=== PATIENT | female | born 1990 | race Caucasian/White ===

== ENCOUNTER 2019-02-27 15:53 | Inpatient (IN) | payer OTHER ==
[~2019-02-27] VITALS: Ht 172.7 cm; Wt 52.2 kg
--- NOTE | 2019-02-27 16:00 | NUR ---
PT IS A/OX4, PRESENTS TO THE ER C/O N/V X 3 DAYS, TNTC. PT IS LETHARGIC AND REPORTS THAT SHE HAS NOT BEEN ABLE TO EAT OR HOLD ANYTHING DOWN SINCE THE VOMITING BEGAN 3 DAYS AGO. VS WNL. PT STATES SHE NORMALLY TAKES CITALOPRAM FOR HER ANXIETY BUT IT HAS NOT BEEN HELPING DUE TO HER CONSTANT VOMITING. PT DENIES PAIN, C/P, SOB, DIZZINESS, HEADACHE.
[2019-02-27] MEDS ORDERED: ONDANSETRON 4 MG/2 ML VIAL ONE (16:27)
[2019-02-27] MEDS ORDERED: ONDANSETRON 4 MG/2 ML VIAL IV ONE ×2 (16:30→17:00)
[2019-02-27] MEDS ORDERED: IV NORMAL SALINE 1000 ML BAG IV ONE ×2 (16:30→17:00)
[2019-02-27 16:33] LABS: BASOPHILS # (AUTO) 0.1 K/uL (0.0-8.0); BASOPHILS % (AUTO) 0.5 % (0.0-2.0); EOSINOPHILS % (AUTO) 0.2 % (0.0-7.0); HEMATOCRIT 50.5 % (31.2-41.9); LYMPHOCYTES # (AUTO) 1.4 K/uL (20.0-40.0); LYMPHOCYTES % (AUTO) 9.6 % (20.5-51.5); MEAN CORPUSCULAR HEMOGLOBIN 30.6 uug (24.7-32.8); MEAN CORPUSCULAR HGB CONC 34 g/dL (32.3-35.6); MONOCYTES # (AUTO) 0.8 K/uL (2.0-10.0); MONOCYTES % (AUTO) 5.9 % (0.0-11.0); NEUTROPHILS # (AUTO) 12.1 K/uL (1.8-8.9); NEUTROPHILS % (AUTO) 83.8 % (38.5-71.5); PLATELET COUNT (AUTO) 424 K/uL (179-408); RED BLOOD CELL COUNT(AUTO) 5.55 MIL/uL (3.63-4.92); WHITE BLOOD COUNT (AUTO) 14.4 K/uL (3.8-11.8)
[2019-02-27 16:45] LABS: POTASSIUM 3.9 mmol/L (3.5-5.1)
[2019-02-27 16:50] LABS: BILIRUBIN,DIRECT 0.2 mg/dL (0.0-0.2); BILIRUBIN,TOTAL 1.1 mg/dL (0.2-1.0)
[2019-02-27] MEDS ORDERED: HALOPERIDOL LACTATE 5 MG/1 ML VIAL IV ONE (17:00)
[2019-02-27] MEDS ORDERED: HALOPERIDOL LACTATE 5 MG/1 ML VIAL ONE (17:03)
[2019-02-27 17:04] LABS: BAND % (MANUAL) 2 % (0-10); LYMPHOCYTES % (MANUAL) 12 % (20-40); MONOCYTES % (MANUAL) 4 % (2-10); NEUTROPHILS % (MANUAL) 82 % (42-75)
[2019-02-27] MEDS ORDERED: CITA20TA16 PO (17:39)
--- NOTE | 2019-02-27 18:22 | NUR ---
ADMITTING REPORT GIVEN TO RICK JAMESON.
--- NOTE | 2019-02-27 18:30 | NUR ---
Pt. admitted to [facility]LE 304, under care of Dr. SPENCE. Belongs List completed
[2019-02-27 18:54] VITALS: BP 111/68
--- NOTE | 2019-02-27 19:03 | NUR ---
Patient 28 year old female from emergency room presenting with Nausea and Vomiting since Tuesday patient diagnosed with Acute Renal Failure. patient given 8mg Zofran and 2L of NS in emergency room. Patient stable with stable vital signs and nos signs of distress. Report given to oncoming nurse.
[2019-02-27 20:00] VITALS: BP 110/66
[2019-02-27] MEDS ORDERED: HALOPERIDOL LACTATE 5 MG/1 ML VIAL IM PRN (20:30)
[2019-02-27] MEDS ORDERED: ONDANSETRON 4 MG/2 ML VIAL IV PRN (20:30)
[2019-02-27] MEDS ORDERED: ACETAMINOPHEN 325 MG TABLET PO PRN (20:30)
--- NOTE | 2019-02-27 21:00 | NUR ---
Admitting Notes Patient is a 28 y/o female with a history of anxiety and depression plus daily cannaboid use but no other medical history. Patient is alert/oriented x3 with no complaints of pain or discomfort at this time, but is feeling anxious and nauseas. IV site in left AC is patent and intact, IVF of NS @ 80mL/hr started, and prescribed 2mL Pepcid provided as ordered, and tolerated well. Patient allowed to shower because she states that a hot shower helps with her anxiety. Post shower, patient was calm and relaxed, and is now sleeping comfortably in bed. All safety and fall precaution measures are in place. Call light and personal items are within reach at all times. Will continue to monitor throughout shift.
[2019-02-27] MEDS: IV NS 1000 ML 1,000 ML IV PRN (21:09)
[2019-02-27] MEDS: FAMOTIDINE. 20 MG/2 ML VIAL IV SCH (21:09)
[2019-02-28] VITALS: BP 115/72
[2019-02-28 04:00] VITALS: BP 120/85
--- NOTE | 2019-02-28 04:40 | NUR ---
Urine collected and delivered to lab
[2019-02-28] MEDS: LORAZEPAM 2 MG/1 ML VIAL IV PRN ×2 (04:43→12:56)
[2019-02-28 05:16] LABS: *CLARITY,URINE SLIGHTLY CLOUDY (CLEAR); *COLOR,URINE YELLOW (YELLOW); *KETONES,URINE 1+ (NEGATIVE); *UROBILINOGEN,URINE 0.2 E.U./dl (NORMAL); LEUKOCYTE ESTERASE ,URINE NEGATIVE (NEGATIVE); NITRITE, URINE NEGATIVE (NEGATIVE); UGLUCOSE NEGATIVE (NEGATIVE)
[2019-02-28 05:42] LABS: *BILIRUBIN,URIN 1+ (NEGATIVE); *BLOOD, URINE TRACE (NEGATIVE)
[2019-02-28 05:48] LABS: *URINE HCG, QUAL NEGATIVE (NEGATIVE)
[2019-02-28 05:51] LABS: RBC,URINE 0-3 /HPF (0-3); WBC,URINE 0-3 /HPF (0-3)
[2019-02-28 05:52] LABS: BACTERIA,URINE NONE SEEN /HPF (NONE SEEN); MUCUS,URINE FEW /LPF (0-FEW); SQUAMOUS EPITHELIAL CELL,UR MANY /HPF (NONE SEEN)
--- NOTE | 2019-02-28 06:00 | NUR ---
Patient slept comfortably after admission to floor. One incident of anxiety was unrelieved by nonpharmacological measures and was relieved with prescribed lorazepam. Patient had no complaints of pain this shift. Urine was collected and delivered to lab this shift. IVF infusing at 80mL/hr are being tolerated well. Call light and personal items are within reach at all times. Safety and fall precaution measures remain in place.
--- NOTE | 2019-02-28 08:00 | NUR ---
RESTING WITH EYES CLOSED CONTINUE WITH TELE OBSERVATION SR ON MONITOR, NO SIGNS OF VOMITING CONTINUE WITH IVF . VERY POOR FOOD INTAKE
[2019-02-28] MEDS: FAMOTIDINE. 20 MG/2 ML VIAL IV SCH ×2 (08:39→21:01)
[2019-02-28] MEDS: CITALOPRAM 20 MG TABLET PO SCH (08:39)
[2019-02-28] MEDS: MORPHINE SULFATE 2 MG/1 ML DISP.SYRIN IV PRN ×2 (08:45→16:04)
[2019-02-28] MEDS: IV NS 1000 ML 1,000 ML IV PRN ×2 (08:57→21:37)
[2019-02-28 09:10] LABS: BASOPHILS % (AUTO) 0.5 % (0.0-2.0); EOSINOPHILS % (AUTO) 0.2 % (0.0-7.0); HEMATOCRIT 39.4 % (31.2-41.9); HEMOGLOBIN 13.2 g/dL (10.9-14.3); LYMPHOCYTES # (AUTO) 1.9 K/uL (20.0-40.0); LYMPHOCYTES % (AUTO) 20.1 % (20.5-51.5); MEAN CORPUSCULAR HEMOGLOBIN 30.8 uug (24.7-32.8); MEAN CORPUSCULAR HGB CONC 33 g/dL (32.3-35.6); MEAN CORPUSCULAR VOLUME 92.1 fL (75.5-95.3); MONOCYTES # (AUTO) 0.8 K/uL (2.0-10.0); MONOCYTES % (AUTO) 8.4 % (0.0-11.0); NEUTROPHILS # (AUTO) 6.9 K/uL (1.8-8.9); NEUTROPHILS % (AUTO) 70.8 % (38.5-71.5); PLATELET COUNT (AUTO) 259 K/uL (179-408); RED BLOOD CELL COUNT(AUTO) 4.28 MIL/uL (3.63-4.92); WHITE BLOOD COUNT (AUTO) 9.7 K/uL (3.8-11.8)
[2019-02-28 09:33] LABS: THYROID STIMULATING HORMONE 1.339 mIU/mL (0.358-3.740)
[2019-02-28 09:52] LABS: BILIRUBIN,TOTAL 0.9 mg/dL (0.2-1.0); CREATININE 0.7 mg/dL (0.6-1.3); PHOSPHOROUS 2.1 mg/dL (2.5-4.9); POTASSIUM 3.2 mmol/L (3.5-5.1)
[2019-02-28 11:42] VITALS: BP 118/59
--- NOTE | 2019-02-28 12:00 | NUR ---
NO ACUTE PAIN OR SIGNS OF VOMITING. CLOSELY MONITORED
[2019-02-28] MEDS ORDERED: NEUTRA PHOS PACKET PO ONE (15:45)
--- NOTE | 2019-02-28 15:48 | NUR ---
PATIENT REMAINS TO HAVE ON AND OFF ANXIETY MEDICATED WITH ATIVAN WITH RELIEF.
[2019-02-28 16:00] VITALS: BP 117/54
[2019-02-28] MEDS ORDERED: BIRTH CONTROL (16:29)
--- NOTE | 2019-02-28 19:19 | NUR ---
Handoff with RICK Quach. Enzo Doyle RN
--- NOTE | 2019-02-28 19:30 | NUR ---
RECEIVED PT AWAKE, ALERT AND ORIENTEDX4. PT SHOWS NO SIGNS OF ACUTE DISTRESS. PT IV INTACT. SAFETY AND COMFORT PROVIDED. WILL CONTINUE TO MONITOR.
[2019-02-28 20:35] VITALS: BP 106/58
[2019-03-01 04:41] VITALS: BP 98/53
--- NOTE | 2019-03-01 06:23 | NUR ---
PT SLEPT THROUGHOUT THE SHIFT. PT SHOWS NO SIGNS OF ACUTE DISTRESS. PRESCRIBED MEDICATION GIVEN AND PT TOLERATED IT WELL. PT TOLERATED IT WELL. SAFETY AND COMFORT PROVIDED. ALL NEEDS ARE MET. WILL ENDORSE TO INCOMING NURSE FOR CONTINUITY OF CARE.
[2019-03-01 06:29] LABS: BASOPHILS # (AUTO) 0.1 K/uL (0.0-8.0); BASOPHILS % (AUTO) 0.9 % (0.0-2.0); EOSINOPHILS # (AUTO) 0.1 K/uL (0.0-0.7); HEMATOCRIT 33.8 % (31.2-41.9); HEMOGLOBIN 11.3 g/dL (10.9-14.3); LYMPHOCYTES # (AUTO) 1.9 K/uL (20.0-40.0); LYMPHOCYTES % (AUTO) 35.1 % (20.5-51.5); MEAN CORPUSCULAR HEMOGLOBIN 30.8 uug (24.7-32.8); MEAN CORPUSCULAR HGB CONC 34 g/dL (32.3-35.6); MONOCYTES # (AUTO) 0.6 K/uL (2.0-10.0); MONOCYTES % (AUTO) 11.5 % (0.0-11.0); NEUTROPHILS # (AUTO) 2.8 K/uL (1.8-8.9); NEUTROPHILS % (AUTO) 51.5 % (38.5-71.5); PLATELET COUNT (AUTO) 211 K/uL (179-408); RED BLOOD CELL COUNT(AUTO) 3.67 MIL/uL (3.63-4.92); WHITE BLOOD COUNT (AUTO) 5.4 K/uL (3.8-11.8)
[2019-03-01 06:42] LABS: ALANINE AMINOTRANSFERASE 11 U/L (14-59); ALKALINE PHOSPHATASE 47 U/L (50-136); ASPARTATE AMINOTRANSFERASE 10 U/L (15-37); CARBON DIOXIDE 27 mmol/L (21-32); CHLORIDE 104 mmol/L (98-107); CREATININE 0.5 mg/dL (0.6-1.3); GLUCOSE 75 mg/dL (74-106); MAGNESIUM 1.8 mg/dL (1.8-2.4); PHOSPHOROUS 2.6 mg/dL (2.5-4.9); POTASSIUM 3.3 mmol/L (3.5-5.1); TOTAL PROTEIN, SERUM 5.8 g/dL (6.4-8.2); UREA NITROGEN, BLOOD 10 mg/dL (7-18)
--- NOTE | 2019-03-01 07:30 | NUR ---
Received pt. in bed, A/Ox4. No acute distress noted. On 2L via NC and tolerating well. LAC PIV remain patent and intact. Tolerating IV fluids with no s/sx of fluid overload. All needs attended and met at this time. Safety measures in place. Will continue to monitor.
[2019-03-01] MEDS: CITALOPRAM 20 MG TABLET PO SCH (08:46)
[2019-03-01] MEDS: FAMOTIDINE. 20 MG/2 ML VIAL IV SCH (08:46)
[2019-03-01] MEDS ORDERED: POTASSIUM CHLORIDE 20 MEQ TAB.PRT.SR PO ONE (09:30)
[2019-03-01] MEDS: IV NS 1000 ML 1,000 ML IV PRN (10:18)
[2019-03-01 11:33] VITALS: BP 113/70
--- NOTE | 2019-03-01 14:30 | NUR ---
Discharge Note: Pt. remained stable at this time. deemed pt. safe for discharge today 03/01/2019. Routine round with pt; pt. remain cooperative, A/OX4 with capacity to make decision. Lungs sounds clear to auscultation bilaterally, no respiratory distress. Heart with regular rate and rhythm, no murmur, rub or gallop. Abdomen soft,non-tender, bowel sounds present in all 4 quadrants. Conjunctivae clear, PERRLA. Pt. served with lunch as ordered and tolerated well. D/C LAC PIV, pt. tolerated procedure well. ID band removed. All belongings are prepared. Inventory done all accountable for. Skin intact with no skin issues. Instructed pt. to follow up with PCP and Psych (Per Dr. Porter) for eating disorder. Pt. teaching provided which include but not limited to meds administration, risk of fall, and skin mgt. Gave pt. information regarding returning to community. Discharge paper signed by pt. witnessed by this marketing copywriter. Provided pt. discharge packet. No further questions from the pt. about the discharge instructions, Pt. verbalized clear understanding. Pt. ambulatory with steady gait. Pt. left the facility at 1430 and d/c to home with family member.
== END 2019-03-01 14:30 | disposition home or self-care (01) | DRG 391 ==
LOC: ER 15:53 → TELE3 18:28 → MEDSURG3 02-28 11:44
PROVIDERS: ADMIT Internal Medicine; ATTEND Internal Medicine
DX: K29.00 Acute gastritis without bleeding (principal); N17.0 Acute kidney failure with tubular necrosis; E87.1 Hypo-osmolality and hyponatremia; Z68.1 Body mass index [BMI] 19.9 or less, adult; E86.0 Dehydration; R11.2 Nausea with vomiting, unspecified; T40.7X5A Adverse effect of cannabis (derivatives), initial encounter; Y92.019 Unspecified place in single-family (private) house as the place of occurrence of the external cause; F12.988 Cannabis use, unspecified with other cannabis-induced disorder; F41.9 Anxiety disorder, unspecified; F50.9 Eating disorder, unspecified; R63.6 Underweight; F41.0 Panic disorder [episodic paroxysmal anxiety]
CPT/HCPCS: 36415; 70030-TC; 82747; 83550; 83690; 83735; 84100; 84443; 84703; 85014; 85025; 87086; 93005; A4663; G0378; J1630; J2060; J2270; J2405; J3490; J7030

== ENCOUNTER 2019-07-26 13:55 | Emergency (ER) | payer OTHER ==
[~2019-07-26] VITALS: Ht 170.2 cm; Wt 52.2 kg
[2019-07-26] MEDS ORDERED: ONDANSETRON 4 MG/2 ML VIAL ONE ×3 (14:08→14:56)
[2019-07-26] MEDS ORDERED: LORAZEPAM 2 MG/1 ML VIAL ONE (14:09)
[2019-07-26] MEDS ORDERED: IV NORMAL SALINE 1000 ML BAG IV ONE (14:15)
[2019-07-26] MEDS ORDERED: LORAZEPAM 2 MG/1 ML VIAL IV ONE (14:15)
[2019-07-26] MEDS ORDERED: ONDANSETRON 4 MG/2 ML VIAL IV ONE ×3 (14:15→15:00)
--- NOTE | 2019-07-26 14:50 | NUR ---
Pt states feeling nauseous and start vomitting, made Dr Plaza aware and Estrella murdokc recieved.
--- NOTE | 2019-07-26 15:50 | NUR ---
Pt states feeling better and able to tolorate PO intake.
--- NOTE | 2019-07-26 15:54 | NUR ---
IV removed. Catheter intact and site benign. Pressure and 4x4 gauze applied to site. No bleeding noted.
[2019-07-26 15:59] VITALS: BP 110/66
--- NOTE | 2019-07-26 15:59 | NUR ---
Patient discharged to home in stable conditon. Written and verbal after care instructions given. Patient verbalizes understanding of instructions.
== END 2019-07-26 16:00 | disposition home or self-care (01) ==
LOC: ER 13:55
DX: F41.9 Anxiety disorder, unspecified (principal); R11.10 Vomiting, unspecified
CPT/HCPCS: 96374; 96375; 96376; 99283; J2060; J2405 ×3; A4663; J7030

== ENCOUNTER 2019-07-27 02:34 | Emergency (ER) | payer OTHER ==
[~2019-07-27] VITALS: Ht 170.2 cm; Wt 52.2 kg
[~2019-07-27 02:34] MED LIST: BIRTH CONTROL; CITA20TA16 PO
[2019-07-27 02:57] LABS: BASOPHILS % (AUTO) 0.3 % (0.0-2.0); EOSINOPHILS % (AUTO) 0.4 % (0.0-7.0); HEMATOCRIT 41.4 % (31.2-41.9); LYMPHOCYTES # (AUTO) 1.2 K/uL (20.0-40.0); LYMPHOCYTES % (AUTO) 10.3 % (20.5-51.5); MEAN CORPUSCULAR HEMOGLOBIN 31.2 uug (24.7-32.8); MEAN CORPUSCULAR HGB CONC 34 g/dL (32.3-35.6); MEAN CORPUSCULAR VOLUME 92.1 fL (75.5-95.3); MONOCYTES # (AUTO) 0.6 K/uL (2.0-10.0); MONOCYTES % (AUTO) 5.3 % (0.0-11.0); NEUTROPHILS # (AUTO) 9.7 K/uL (1.8-8.9); NEUTROPHILS % (AUTO) 83.7 % (38.5-71.5); PLATELET COUNT (AUTO) 381 K/uL (179-408); RED BLOOD CELL COUNT(AUTO) 4.49 MIL/uL (3.63-4.92); WHITE BLOOD COUNT (AUTO) 11.6 K/uL (3.8-11.8)
[2019-07-27 03:02] LABS: POTASSIUM 3.5 mmol/L (3.5-5.1)
[2019-07-27 03:08] LABS: BILIRUBIN,TOTAL 0.9 mg/dL (0.2-1.0); TOTAL PROTEIN, SERUM 8.7 g/dL (6.4-8.2)
[2019-07-27] MEDS ORDERED: IV NS 1000 ML 1,000 ML IV ONE (03:15)
[2019-07-27] MEDS ORDERED: METOCLOPRAMIDE HCL 10 MG/2 ML VIAL IV ONE (03:15)
[2019-07-27 03:17] LABS: BILIRUBIN,DIRECT 0.2 mg/dL (0.0-0.2)
[2019-07-27] MEDS ORDERED: METOCLOPRAMIDE HCL 10 MG/2 ML VIAL ONE (03:32)
--- NOTE | 2019-07-27 04:31 | NUR ---
Patient discharged to home in stable conditon walking w/ steady gait. Written and verbal after care instructions given. Patient verbalizes understanding of instructions.IV removed. Catheter intact and site benign. Pressure and 4x4 gauze applied to site. No bleeding noted.All belongings w/patient.
[2019-07-27 04:43] VITALS: BP 110/80
[2019-07-29] MEDS ORDERED: ONDA4TAB8 PO (07:08)
== END 2019-07-27 04:44 | disposition home or self-care (01) ==
LOC: ER 02:39
DX: R11.10 Vomiting, unspecified (principal); F41.9 Anxiety disorder, unspecified
CPT/HCPCS: 36415; 80048; 80076; 83690; 84702; 85025; 93005; 96361; 96374; 99284; J2765; A4663; J7030

== ENCOUNTER 2019-07-29 06:59 | Emergency (ER) | payer OTHER ==
[~2019-07-29] VITALS: Ht 170.2 cm; Wt 52.2 kg
[2019-07-29] MEDS ORDERED: IV NORMAL SALINE 1000 ML BAG IV ONE ×2 (07:30→08:15)
[2019-07-29] MEDS ORDERED: PANTOPRAZOLE SODIUM 40 MG VIAL IV ONE (07:30)
[2019-07-29] MEDS ORDERED: ONDANSETRON 4 MG/2 ML VIAL IV ONE (07:30)
--- NOTE | 2019-07-29 07:40 | NUR ---
Pt.was seen by .
[2019-07-29 07:43] LABS: BASOPHILS % (AUTO) 0.3 % (0.0-2.0); EOSINOPHILS % (AUTO) 0.1 % (0.0-7.0); HEMATOCRIT 44.4 % (31.2-41.9); HEMOGLOBIN 15.3 g/dL (10.9-14.3); LYMPHOCYTES # (AUTO) 1.1 K/uL (20.0-40.0); LYMPHOCYTES % (AUTO) 9.2 % (20.5-51.5); MEAN CORPUSCULAR HEMOGLOBIN 31.4 uug (24.7-32.8); MEAN CORPUSCULAR HGB CONC 34 g/dL (32.3-35.6); MEAN CORPUSCULAR VOLUME 91.2 fL (75.5-95.3); MONOCYTES # (AUTO) 0.9 K/uL (2.0-10.0); NEUTROPHILS # (AUTO) 10.3 K/uL (1.8-8.9); NEUTROPHILS % (AUTO) 83.4 % (38.5-71.5); PLATELET COUNT (AUTO) 381 K/uL (179-408); RED BLOOD CELL COUNT(AUTO) 4.87 MIL/uL (3.63-4.92); WHITE BLOOD COUNT (AUTO) 12.4 K/uL (3.8-11.8)
[2019-07-29] MEDS ORDERED: ONDANSETRON 4 MG/2 ML VIAL ONE ×2 (07:43→09:15)
[2019-07-29] MEDS ORDERED: PANTOPRAZOLE SODIUM 40 MG VIAL ONE (07:43)
[2019-07-29 07:51] LABS: CREATININE 1.2 mg/dL (0.6-1.3)
--- NOTE | 2019-07-29 07:57 | NUR ---
Pt. sleeping no s/s of distress.
[2019-07-29 07:58] LABS: BILIRUBIN,DIRECT 0.2 mg/dL (0.0-0.2); BILIRUBIN,TOTAL 0.8 mg/dL (0.2-1.0)
--- NOTE | 2019-07-29 08:45 | NUR ---
Pt.denies any s/s of n/v,was seen by .
[2019-07-29 08:56] VITALS: BP 106/64
--- NOTE | 2019-07-29 09:11 | NUR ---
pt.was ready to go home,pipo n/v , was notif.care out new order for Zofran.
[2019-07-29] MEDS ORDERED: ONDANSETRON 4 MG/2 ML VIAL IM ONE (09:15)
[2019-07-29] MEDS ORDERED: diphenhydrAMINE 50 MG/1 ML VIAL IV ONE (10:00)
[2019-07-29] MEDS ORDERED: METOCLOPRAMIDE HCL 10 MG/2 ML VIAL IV ONE (10:00)
[2019-07-29] MEDS ORDERED: METOCLOPRAMIDE HCL 10 MG/2 ML VIAL ONE (10:12)
[2019-07-29] MEDS ORDERED: diphenhydrAMINE 50 MG/1 ML VIAL ONE (10:12)
--- NOTE | 2019-07-29 10:23 | NUR ---
Pt. discontinue Left arm#22 IV HL by self. Patient eloped from facility. ER physician notified.
== END 2019-07-29 10:23 | disposition left against medical advice (07) ==
LOC: ER 07:02
DX: R11.15 Cyclical vomiting syndrome unrelated to migraine (principal); Z79.899 Other long term (current) drug therapy
CPT/HCPCS: 36415; 80048; 80076; 83690; 84702; 85025; 96361; 96372; 96374; 96375; 99284; C9113; J1200; J2405 ×2; J2765; A4663; J7030